=== PATIENT | male | born 1945 | race Caucasian/White ===

== ENCOUNTER → 2024-07-13 07:22 | Outpatient (REF) | payer MEDICARE, OTHER, SELFPAY ==
[2024-07-13 09:42] LABS: % Basophils 1.5 % (0-2); % Eosinophils 8.8 % (0-6); % Immature Granulocytes 0.4 % (0-0.5); % Lymphocytes 22.8 % (20.5-51.1); % Monocytes 10.1 % (1.7-9.3); % Neutrophils 56.4 % (42.2-75.2); Absolute Basophils 0.1 10^3/uL (0-0.2); Absolute Eosinophils 0.4 10^3/uL (0-0.7); Absolute Lymphocytes 1.1 10^3/uL (1.2-3.4); Absolute Monocytes 0.5 10^3/uL (0.1-0.6); Absolute Neutrophils 2.6 10^3/uL (1.4-6.5); Hematocrit 42.8 % (39.0-52.0); Hemoglobin 15.3 g/dL (13.0-18.0); Mean Corp Hgb Conc. 35.7 g/dL (33.0-37.0); Mean Corpuscular Hgb 34.4 pg (27.0-31.0); Mean Corpuscular Volume 96.2 fL (80.0-94.0); Mean Platelet Volume 10.3 fL (7.4-10.4); Nucleated Red Blood Cells % 0 % (-); Platelet Count 179 10^3/uL (130-400); Red Blood Cell Count 4.45 10^6/uL (4.70-6.10); Red Cell Dist. Width 11.8 % (11.5-14.5); White Blood Cell Count 4.6 10^3/uL (4.8-10.8)
[2024-07-13 10:01] LABS: ALT (SGPT) 33 U/L (0-50); AST (SGOT) 43 U/L (17-59); Albumin 4.7 g/dl (3.5-5.0); Alkaline Phosphatase 55 U/L (38-126); Blood Urea Nitrogen 18 mg/dl (9-20); Calcium 9.5 mg/dl (8.4-10.2); Carbon Dioxide 30 mmol/L (22-30); Chloride 101 mmol/L (98-107); Glucose 103 mg/dl (70-99); HDL Cholesterol 61 mg/dl; LDL Cholesterol, Calculated 82 mg/dl; Potassium 4.6 mmol/L (3.5-5.1); Sodium 138 mmol/L (135-145); Total Bilirubin 2.2 mg/dl (0.2-1.3); Total Cholesterol 186 mg/dl (50-199); Total Protein 7.8 g/dl (6.3-8.2); Triglyceride 218 mg/dl (10-149); Very Low Density Lipoprotein 43 mg/dl (0-30); eGFR > 60.00
[2024-07-13 10:29] LABS: PSA, Total - Screen 1.03 ng/ml (0.0-4.0); TSH Reflex To Free T4 1.95 uIU/ml (0.47-4.68)
[2024-07-13 10:45] LABS: Hepatitis C Antibody Negative (Negative)
[2024-07-13 11:25] LABS: Vitamin B12 415 pg/ml (239-931)
[2024-07-13 11:28] LABS: Glycohemoglobin (HgbA1c) 5.6 % (4.0-5.6)
== END ==
LOC: REG 07:22
PROVIDERS: ATTENDING PHYSICIAN Family Medicine
DX: R79.9 Abnormal finding of blood chemistry, unspecified (principal); Z01.89 Encounter for other specified special examinations; Z79.899 Other long term (current) drug therapy; Z12.5 Encounter for screening for malignant neoplasm of prostate
CPT/HCPCS: 36415; 80053; 80061; 82607; 83036; 84443; 85025; 86803; G0103

== ENCOUNTER → 2024-11-28 07:40 | Outpatient (REF) | payer MEDICARE, OTHER, SELFPAY ==
[2024-11-28 09:05] LABS: Glycohemoglobin (HgbA1c) 5.7 % (4.0-5.6)
[2024-11-28 09:08] LABS: ALT (SGPT) 27 U/L (0-50); AST (SGOT) 30 U/L (17-59); Albumin 4.6 g/dl (3.5-5.0); Alkaline Phosphatase 62 U/L (38-126); Blood Urea Nitrogen 15 mg/dl (9-20); Calcium 9.3 mg/dl (8.4-10.2); Carbon Dioxide 29 mmol/L (22-30); Chloride 107 mmol/L (98-107); Glucose 103 mg/dl (70-99); Potassium 4.7 mmol/L (3.5-5.1); Sodium 142 mmol/L (135-145); Total Bilirubin 3.1 mg/dl (0.2-1.3); Total Protein 7.3 g/dl (6.3-8.2); eGFR > 60.00
== END ==
LOC: REG 07:40
PROVIDERS: ATTENDING PHYSICIAN Family Medicine
DX: R73.9 Hyperglycemia, unspecified (principal); Z01.89 Encounter for other specified special examinations; Z79.899 Other long term (current) drug therapy
CPT/HCPCS: 36415; 80053; 83036

== ENCOUNTER → 2024-12-11 14:45 | Outpatient (REF) | payer MEDICARE, OTHER, SELFPAY | LOC: HWRAD 14:45 | PROVIDERS: ATTENDING PHYSICIAN Family Medicine; REFERRING PHYSICIAN Specialist | DX: N28.89 Other specified disorders of kidney and ureter (principal) | CPT/HCPCS: 76775 ==

== ENCOUNTER 2025-07-02 12:59 | Inpatient (IN) | payer MEDICARE, OTHER, SELFPAY ==
[2025-07-02] VITALS (15 sets, daily range): BP systolic 126–196; BP diastolic 75–99; BMI 30.3
--- NOTE | 2025-07-02 06:36 | ED.GENMED ---
History of Present Illness
<Alli Naqvi PA-C - Last Filed: 07/02/25 10:11>
General
Chief Complaint: Flank Pain
Time Seen by Provider: 07/02/25 06:04
History of Present Illness
History of Present Illness:
79-year-old male presents to the emergency department for evaluation of left flank pain beginning early hours this morning. Has a history of frequent kidney stones often requiring lithotripsy or ureteral stenting. Denies fevers or chills. No
diarrhea, hematuria, or dysuria.
Past History
<Alli Naqvi PA-C - Last Filed: 07/02/25 10:11>
Past History
ED Past Medical History: Hypercholesterolemia and Other (renal stones)
ED Past Surgical History: Cholecystectomy and Urological (Kidney stones)
Social History
Tobacco: Non-smoker
Alcohol: Occasional
Drug: None
Personal:
Living: with family
Employment: Retired
Family History
Family History: Hypertension
Review of Systems
<Alli Naqvi PA-C - Last Filed: 07/02/25 10:11>
Review of Systems
Allergies reviewed?: Yes
All Other Systems: ROS reviewed and negative except as documented in HPI and ROS
Phy Exam
<Alli Naqvi PA-C - Last Filed: 07/02/25 10:11>
Physical Exam
Physical Exam:
GEN: Well appearing, NAD, WDWN
HEENT: Oral mucosa moist, no scleral icterus
Cardiac: Regular rate
Lung: No respiratory distress, no tachypnea
Abdomen: Soft, grossly nontender, no CVA tenderness
MSK: No gross deformity or injuries
Skin: Good color, no pallor or jaundice, no rashes
Neuro: AO x3, moves all extremities freely
Psych: Calm, cooperative
Course
<Alli Naqvi PA-C - Last Filed: 07/02/25 10:11>
Orders/Labs/Results
Orders:
Orders
07/02/25 Breakfast
NPO
Allow oral meds: Yes
Allow clear liquids: Sips of Clears
07/02/25 06:27
CT Abd/pel Without Iv Or Oral Urgent
Comment:
Reason For Exam: L flank pain
Urinalysis Reflex To Culture Urgent
0.9% Sodium Chloride 1000 ml [Nss] 1,000 ml IV BOLUS
Ketorolac [Toradol] 15 mg IV NOW STA
07/02/25 06:44
Complete Blood Count/With Diff Urgent
Comprehensive Metabolic Panel Urgent
07/02/25 07:26
HYDROmorphone [Dilaudid] 0.5 mg IV NOW STA
Ondansetron Injectable [Zofran] 4 mg IV NOW STA
07/02/25 08:46
Admit Patient As Directed
Co-Sign Provider:
Level of Care: Inpatient admission
Assign to:: Medical/Surgical
Physician / Group:
Diagnosis: Nephrolithiasis
Reason for Hospitalization: Kidney stone
Expected length of stay greater than two midnights?: Yes
ELOS- Estimated Length of Stay in days: 3
I certify the patient meets the requirements for IP care: Yes
Code Status As Directed
Resuscitation Status: Do not resuscitate
Reached after discussion with pt or family/Healthcare POA: Yes
Bisacodyl [Dulcolax] 10 mg RECTAL [id number] PRN
Docusate W/Senna [Senokot-S] 1 tablet PO BIDPRN PRN
Polyethylene Glycol Powder [Miralax] 17 grams PO DAILYPRN PRN
PRN Pain Medication Management As Directed
May give lesser potent ordered pain med per pt: Yes
preference::
Protocol:: Medication orders for pain may be administered in a
manner that supports deferring to patient preference
when the pt is:
- Requesting an ordered lesser potent pain medication.
Least to most potent pain medications are defined
as: acetaminophen < NSAID < tramadol < opioids
(morphine, oxycodone, hydromorphone).
- Requesting a lesser dose of the same medication IF
ORDERED.
- Requesting a less intrusive route of administration
if both routes are prescribed by the provider (PO <
IV).
07/02/25 08:48
Activity As Directed
Activity Level: As Tolerated
DNR Bracelet Application ONCE
Vital Signs As Directed
Frequency: Per unit guidelines
07/02/25 08:51
Acetaminophen [Tylenol] 650 mg PO Q4HPRN PRN
07/02/25 08:53
Pneumatic Compression Sleeves As Directed
Type: Knee high
DX Deep Vein Thrombosis Video Routine
07/02/25 09:19
UROLOGY CONSULT Routine
Consulting Provider: Harrpeet Shah
Was physician already notified: Yes
07/02/25 09:38
Bisacodyl [Dulcolax] 10 mg RECTAL [id number] PRN
Docusate W/Senna [Senokot-S] 1 tablet PO BIDPRN PRN
Polyethylene Glycol Powder [Miralax] 17 grams PO DAILYPRN PRN
07/02/25 09:39
HYDROmorphone [Dilaudid] 0.25 mg IV Q4HPRN PRN
HYDROmorphone [Dilaudid] 0.5 mg IV Q4HPRN PRN
Activity As Directed
Activity Level: As Tolerated
Vital Signs As Directed
Frequency: Per unit guidelines
PRN Pain Medication Management As Directed
May give lesser potent ordered pain med per pt: Yes
preference::
Protocol:: Medication orders for pain may be administered in a
manner that supports deferring to patient preference
when the pt is:
- Requesting an ordered lesser potent pain medication.
Least to most potent pain medications are defined
as: acetaminophen < NSAID < tramadol < opioids
(morphine, oxycodone, hydromorphone).
- Requesting a lesser dose of the same medication IF
ORDERED.
- Requesting a less intrusive route of administration
if both routes are prescribed by the provider (PO <
IV).
07/02/25 09:45
0.9% Sodium Chloride 1000 ml [Nss] 1,000 ml IV 100 mls/hr
07/02/25 10:00
Tamsulosin [Flomax] 0.4 mg PO DAILY
07/03/25 06:00
Complete Blood Count/With Diff IN AM
Comprehensive Metabolic Panel IN AM
Abnormal Lab Results
07/02/25
06:44
RBC 4.53 L 10^6/uL
(4.70-6.10)
MCV 95.1 H fL
(80.0-94.0)
MCH 33.8 H pg
(27.0-31.0)
Absolute Lymphs (auto) 0.7 L 10^3/uL
(1.2-3.4)
Neutrophils % 81.1 H %
(42.2-75.2)
Lymphocytes % 11.2 L %
(20.5-51.1)
BUN 22 H mg/dl
(9-20)
Glucose 125 H mg/dl
(70-99)
Total Bilirubin 2.4 H mg/dl
(0.2-1.3)
07/02/25 06:44
07/02/25 06:44
Vital Signs
Initial and Last Documented VS:
Initial Vital Signs
Temp Pulse Resp BP Pulse Ox
97.7 F 60 20 174/94 98
07/02/25 05:15 07/02/25 05:15 07/02/25 05:15 07/02/25 05:15 07/02/25 05:15
Last Documented Vital Signs
Temp Pulse Resp BP Pulse Ox
97.7 F 64 16 160/86 98
07/02/25 05:15 07/02/25 07:37 07/02/25 07:37 07/02/25 07:37 07/02/25 07:37
<Sesar Ott, DO - Last Filed: 07/02/25 09:43>
Orders/Labs/Results
Orders:
Orders
07/02/25 Breakfast
NPO
Allow oral meds: Yes
Allow clear liquids: Sips of Clears
07/02/25 06:27
CT Abd/pel Without Iv Or Oral Urgent
Comment:
Reason For Exam: L flank pain
Urinalysis Reflex To Culture Urgent
0.9% Sodium Chloride 1000 ml [Nss] 1,000 ml IV BOLUS
Ketorolac [Toradol] 15 mg IV NOW STA
07/02/25 06:44
Complete Blood Count/With Diff Urgent
Comprehensive Metabolic Panel Urgent
07/02/25 07:26
HYDROmorphone [Dilaudid] 0.5 mg IV NOW STA
Ondansetron Injectable [Zofran] 4 mg IV NOW STA
07/02/25 08:46
Admit Patient As Directed
Co-Sign Provider:
Level of Care: Inpatient admission
Assign to:: Medical/Surgical
Physician / Group:
Diagnosis: Nephrolithiasis
Reason for Hospitalization: Kidney stone
Expected length of stay greater than two midnights?: Yes
ELOS- Estimated Length of Stay in days: 3
I certify the patient meets the requirements for IP care: Yes
Code Status As Directed
Resuscitation Status: Do not resuscitate
Reached after discussion with pt or family/Healthcare POA: Yes
Bisacodyl [Dulcolax] 10 mg RECTAL [id number] PRN
Docusate W/Senna [Senokot-S] 1 tablet PO BIDPRN PRN
Polyethylene Glycol Powder [Miralax] 17 grams PO DAILYPRN PRN
PRN Pain Medication Management As Directed
May give lesser potent ordered pain med per pt: Yes
preference::
Protocol:: Medication orders for pain may be administered in a
manner that supports deferring to patient preference
when the pt is:
- Requesting an ordered lesser potent pain medication.
Least to most potent pain medications are defined
as: acetaminophen < NSAID < tramadol < opioids
(morphine, oxycodone, hydromorphone).
- Requesting a lesser dose of the same medication IF
ORDERED.
- Requesting a less intrusive route of administration
if both routes are prescribed by the provider (PO <
IV).
07/02/25 08:48
Activity As Directed
Activity Level: As Tolerated
DNR Bracelet Application ONCE
Vital Signs As Directed
Frequency: Per unit guidelines
07/02/25 08:51
Acetaminophen [Tylenol] 650 mg PO Q4HPRN PRN
07/02/25 08:53
Pneumatic Compression Sleeves As Directed
Type: Knee high
DX Deep Vein Thrombosis Video Routine
07/02/25 09:19
UROLOGY CONSULT Routine
Consulting Provider: Harpreet Shah
Was physician already notified: Yes
07/02/25 09:38
Bisacodyl [Dulcolax] 10 mg RECTAL [id number] PRN
Docusate W/Senna [Senokot-S] 1 tablet PO BIDPRN PRN
Polyethylene Glycol Powder [Miralax] 17 grams PO DAILYPRN PRN
07/02/25 09:39
HYDROmorphone [Dilaudid] 0.25 mg IV Q4HPRN PRN
HYDROmorphone [Dilaudid] 0.5 mg IV Q4HPRN PRN
Activity As Directed
Activity Level: As Tolerated
Vital Signs As Directed
Frequency: Per unit guidelines
PRN Pain Medication Management As Directed
May give lesser potent ordered pain med per pt: Yes
preference::
Protocol:: Medication orders for pain may be administered in a
manner that supports deferring to patient preference
when the pt is:
- Requesting an ordered lesser potent pain medication.
Least to most potent pain medications are defined
as: acetaminophen < NSAID < tramadol < opioids
(morphine, oxycodone, hydromorphone).
- Requesting a lesser dose of the same medication IF
ORDERED.
- Requesting a less intrusive route of administration
if both routes are prescribed by the provider (PO <
IV).
07/02/25 09:45
0.9% Sodium Chloride 1000 ml [Nss] 1,000 ml IV 100 mls/hr
07/02/25 10:00
Tamsulosin [Flomax] 0.4 mg PO DAILY
07/03/25 06:00
Complete Blood Count/With Diff IN AM
Comprehensive Metabolic Panel IN AM
Abnormal Lab Results
07/02/25
06:44
RBC 4.53 L 10^6/uL
(4.70-6.10)
MCV 95.1 H fL
(80.0-94.0)
MCH 33.8 H pg
(27.0-31.0)
Absolute Lymphs (auto) 0.7 L 10^3/uL
(1.2-3.4)
Neutrophils % 81.1 H %
(42.2-75.2)
Lymphocytes % 11.2 L %
(20.5-51.1)
BUN 22 H mg/dl
(9-20)
Glucose 125 H mg/dl
(70-99)
Total Bilirubin 2.4 H mg/dl
(0.2-1.3)
07/02/25 06:44
07/02/25 06:44
Vital Signs
Initial and Last Documented VS:
Initial Vital Signs
Temp Pulse Resp BP Pulse Ox
97.7 F 60 20 174/94 98
07/02/25 05:15 07/02/25 05:15 07/02/25 05:15 07/02/25 05:15 07/02/25 05:15
Last Documented Vital Signs
Temp Pulse Resp BP Pulse Ox
97.7 F 64 16 160/86 98
07/02/25 05:15 07/02/25 07:37 07/02/25 07:37 07/02/25 07:37 07/02/25 07:37
<Alli Naqvi PA-C - Last Filed: 07/02/25 10:11>
MDM/Problems Addressed
MDM/Problems Addressed:
Given history requiring numerous ureteral stents will admit for urologic intervention, he is clinically stable at this time
<Alli Naqvi PA-C - Last Filed: 07/02/25 10:11>
*Pulse Oximetry
SaO2: 98
Patient hypoxic: no
*Critical Care Note
Total Time (30-74mins, 75-104mins- exclusive of procedures): Not Applicable
ED Attending Note
<Alli Naqvi PA-C - Last Filed: 07/02/25 10:11>
-
Portions of this chart may have been created with voice recognition software.� Occasional wrong word or��sound alike� substitutions may have occurred due to the inherent limitations of voice recognition software.
<Sesar Ott, DO - Last Filed: 07/02/25 09:43>
ED Attending Note
Patient seen and examined by attending physician: Yes
I performed the substantive portion of visit, reviewed & personally made and approve the management plan that is documented in note by myself or ACL.: Yes
ED Attending Note:
I evaluated patient at bedside. 7 mm left UPJ stone. Of note, total bili chronically elevated. Plan is for admission to the hospital for urologic management and procedure.
Discharge Plan
Departure
Patient Disposition: Admit
Date of Disposition: 07/02/25
Time of Disposition: 07:59
Admit to: Med/Surg
Presentation/result/management discussed w/ accepting MD/DO: Hospitalist
Discharge Problem:
Ureterolithiasis
Prescriptions:
No Action
trazodone 50 mg Tablet
50 mg PO HSPRN PRN (Reason: SLEEP)
atorvastatin 10 mg Tablet
10 mg PO HS
clonazepam 0.5 mg Tablet
0.25 mg PO BID
Referrals:
Debbie Torres MD [Family Provider, Family Practice]
Interventions
Interventions:
*General Assessment Last Done: 07/02/25 06:27
*Neglect/Abuse Screening Last Done: 07/02/25 05:15
*ED COVID-19 Vaccine History Last Done: 07/02/25 06:27
*ED Influenza Vaccine History Last Done: 07/02/25 06:27
[facility] Risk Assessment Tool Last Done: 07/02/25 06:27
*Risk Screen - Suicide (C-SSRS) Last Done: 07/02/25 06:27
PF-Lcsmyo-Jtddgusmol Assessment Last Done: 07/02/25 06:27
ED-Male Genitourinary Assessment Last Done: 07/02/25 06:27
Discharge Date and Time
Print Language: INDIAN
[2025-07-02] MEDS: NSS 1000 IV ×2 (06:40→14:39)
[2025-07-02] MEDS: TORADOL 15 MG IV (06:41)
[2025-07-02 07:00] LABS: Hematocrit 43.1 % (39.0-52.0); Hemoglobin 15.3 g/dL (13.0-18.0); Mean Corp Hgb Conc. 35.5 g/dL (33.0-37.0); Mean Corpuscular Volume 95.1 fL (80.0-94.0); Nucleated Red Blood Cells % 0 % (-); Platelet Count 153 10^3/uL (130-400); Red Cell Dist. Width 11.8 % (11.5-14.5)
[2025-07-02 07:11] LABS: ALT (SGPT) 24 U/L (0-50); AST (SGOT) 31 U/L (17-59); Albumin 4.6 g/dl (3.5-5.0); Alkaline Phosphatase 62 U/L (38-126); Blood Urea Nitrogen 22 mg/dl (9-20); Calcium 9.0 mg/dl (8.4-10.2); Carbon Dioxide 25 mmol/L (22-30); Chloride 105 mmol/L (98-107); Estimated Creatinine Clearance 69 ml/min; Glucose 125 mg/dl (70-99); Potassium 4.0 mmol/L (3.5-5.1); Sodium 136 mmol/L (135-145); Total Protein 7.9 g/dl (6.3-8.2); eGFR > 60.00
[2025-07-02] MEDS: ZOFRAN 4 MG IV (07:31)
[2025-07-02] MEDS: DILAUDID 0.5 MG IV ×3 (07:32→14:33)
--- NOTE | 2025-07-02 08:27 | HPS.HSE ---
Addendum entered and electronically signed by Chema Ledesma MD 07/02/25 09:59:
I saw and examined the patient.
The Resident's note was reviewed and I agree with the note.
Comment:
Patient is 79 years old male with past medical history as outlined came into the hospital left flank pain and found to have 7 mm calculus at the left ureteropelvic junction with mild to moderate left hydronephrosis. No fevers or chills. No dysuria
urgency or frequency. No chest pain or shortness of breath.
Physical exam:
General: Well Developed, Well Nourished and No Apparent Distress
HEENT: Normocephalic, Atraumatic and Moist Mucous Membranes
Respiratory: Clear to Auscultation; Negative Wheezes, Rales or Rhonchi
Cardiac: Regular Rhythm and S1/S2
GI: Soft, tender and Nondistended
Musculoskeletal: No Clubbing, No Cyanosis and No Edema
Neuro: Awake, Alert and Oriented
Psych: Calm
A/P:
Symptomatic obstructive ureteral stone--> IV fluids, Flomax, pain control, urology consult
Original Note:
Family Physician
-
Family Physician: Debbie Torres MD
Chief Complaint
-
Nephrolithiasis
History of Present Illness
This is a 79-year-old male patient who presents to [facility] for concerns of left-sided flank pain. He states that his pain started at around midnight last night after putting up his [place] decorations. He had initially assumed that this might be
constipation and had taken Dulcolax but had found no relief. Left-sided flank pain was nonradiating and did not take any pain medications. Denies any difficulty with urination or fever. He then started to have nausea and vomiting which were
uncontrollable which had brought him to the hospital. He recently traveled to [place] and returned on Tuesday night.
He states that he does have history of frequent kidney stones and multiple stents, with his most recent stent in 2020. He follows with Dr. Cerna urology outpatient whom he had last seen in February 2025.
Medical History
Past Medical History
Past Medical History: Reports GERD and Hypercholesterolemia
Additional Past Medical History:
Diverticulitis, basal cell carcinoma
Past Surgical History: Reports Bowel Resection (Partial colectomy 2015, right inguinal hernia repair 2019, tonsillectomy, cholecystectomy)
Social History
Tobacco: Non-smoker
Alcohol: Occasional
Drug: None
Personal:
Living: With Family
Family History
Family History: Cancer (Father prostate cancer, mother lung cancer)
Allergies / Home Medications
Allergies reflects when Allergies were last updated in [employer].
Home Medications with original date entered in [employer]
Allergy/Medication List:
Allergies
Allergy/AdvReac Type Severity Reaction Status Date / Time
metoclopramide Allergy Hyper Verified 07/02/25 05:17
morphine Allergy Vomiting Verified 07/02/25 05:17
oxycodone HCl (From Allergy trouble Verified 07/02/25 05:17
OxyContin) urinating
Home Medications
atorvastatin 10 mg tablet 10 mg PO HS High Cholesterol 02/09/23
clonazepam 0.5 mg tablet 0.25 mg PO BID Mental Health/Anxiety 02/09/23
trazodone 50 mg tablet 50 mg PO HSPRN PRN SLEEP 02/09/23
Review of Systems
-
History Source: Patient and Family
A 12 point ROS was completed and negative except as noted: Yes
: Reports Flank Pain (Left-sided)
Physical Exam
Vital Signs
Vital Signs
Temp Pulse Resp BP Pulse Ox
97.7 F 64 16 160/86 98
07/02/25 05:15 07/02/25 07:37 07/02/25 07:37 07/02/25 07:37 07/02/25 07:37
Physical Exam
General: Well Developed
HEENT: NormoCephalic
Respiratory: Clear
Cardiac: S1/S2 and Regular Rhythm
GI: Soft, Non Distended and Other (Left-sided flank pain)
Skin: Warm and Dry
Neuro: Awake, Alert and Oriented
Psych: Calm
Laboratory Results
-
07/02/25 06:44
07/02/25 06:44
Laboratory Results
Total Bilirubin 2.4 mg/dl (0.2-1.3) H 07/02/25 06:44
AST 31 U/L (17-59) 07/02/25 06:44
ALT 24 U/L (0-50) 07/02/25 06:44
Alkaline Phosphatase 62 U/L (38-126) 07/02/25 06:44
Impression/Plan
-
IMPRESSION:This is a 79-year-old male patient who presents to [facility] for concerns of left-sided flank pain.
PLAN:
#Nephrolithiasis
-Abd CT: 7 mm calculus at the left ureteropelvic junction with associated mild to moderate left hydronephrosis.
-NPO
-Continue pain management with tylenol for mild pain, IV Dilaudid for mod-severe pain, IV zofran prn
-Consult urology
-CBC and CMP in AM
-Initiate IVF
-Start flomax
#Mixed Hyperlipidemia
- continue statin
#Anxiety
- Takes clonazepam 0.25 twice daily but has not taken it for the past few days
Code: DNR
DVT: SCD
--- NOTE | 2025-07-02 09:55 | CONS.URO ---
Consultation
-
Date/Time Consultation Performed: 07/02/2025 1155
Performing Provider: Pablo
Reason for Consultation: Left Ureteral Stone
Medical History
History of Present Illness
Dr Cerna's office not from 12/2024: 'but t/c eswl for 7 mm rt upper pole stoe� pt to call after upvcoming low back txs'
Patient was advised to pre-emptively treat stone -- he declined.
ED note: '79-year-old male presents to the emergency department for evaluation of left flank pain beginning early hours this morning. Has a history of frequent kidney stones often requiring lithotripsy or ureteral stenting. Denies fevers or
chills. No diarrhea, hematuria, or dysuria.
Past Medical History
Past Medical History: Other (GERD, Hypercholesterolemia, Diverticulitis, basal cell carcinoma, nephrolithiasis)
Past Surgical History: Other (Partial colectomy 2014, right inguinal hernia repair 2019, tonsillectomy, cholecystectomy)
Social History
Personal:
Living: With Family
Allergies/Home Medications
Allergies
Allergy/AdvReac Type Severity Reaction Status Date / Time
metoclopramide Allergy Hyper Verified 07/02/25 05:17
morphine Allergy Vomiting Verified 07/02/25 05:17
oxycodone HCl (From Allergy trouble Verified 07/02/25 05:17
OxyContin) urinating
Home Medications
�Medication �Instructions �Recorded �Confirmed �Type
atorvastatin 10 mg tablet 10 mg PO HS High Cholesterol 02/09/23 07/02/25 History
clonazepam 0.5 mg tablet 0.25 mg PO BID Mental 02/09/23 07/02/25 History
Health/Anxiety
trazodone 50 mg tablet 50 mg PO HSPRN PRN SLEEP 02/09/23 07/02/25 History
Review of Systems
-
Constitutional: Reports No Symptoms
Respiratory: Reports No Symptoms
Cardiac: Reports No Symptoms
Physical Exam
Vital Signs
Vital Signs
Temp Pulse Resp BP Pulse Ox
97.7 F 64 16 160/86 98
07/02/25 05:15 07/02/25 07:37 07/02/25 07:37 07/02/25 07:37 07/02/25 07:37
Lab / Testing Results
Laboratory Results
07/02/25 06:44
07/02/25 06:44
Physical Exam
General: Well Developed, Well Nourished and No Apparent Distress
GI: Soft
Genito-urinary: No Costovertebral Tend
Assessment / Plan
-
Left Ureteral Stone: 7 mm, proximal, partially obstructing
d/w Dr Cerna --> will post for OR during PM today
surgical consent signed; present
Data Reviewed
-
CT Scan: Image personally visualized and interpreted
Lab Data: Labs Reviewed
Old Records: Reviewed
[2025-07-02 10:38] LABS: Urine Character Clear (Clear)
[2025-07-02 11:30] LABS: Urine Squamous Cell 0-2 /LPF (Few)
[2025-07-02 11:31] LABS: Urine Red Blood Cell >100 /HPF (0-2)
[2025-07-02] MEDS: FLOMAX 0.4 MG PO (14:38)
--- NOTE | 2025-07-02 16:46 | W.SUR.POST ---
Surgical Immediate Post Op
Note
Pre Op Diagnosis: prox left uretreal stone with obstruction
Post Op Diagnosis: same
Procedure Performed: left uretroscopy laser stone extraction with basket left jj stent
Primary Surgeonflrhysner
Secondary Surgeons:
Anesthesia: brittney lassiter
Estimated Blood Loss: 2cc
Fluids: nss
Drains/Shunts:6 fr 24 cm jj stent
Specimens/Cultures: stone
Doppler/Duplex/Angio (Y/N):
Complications: 0
Operative Findings: lg stone prox left ureter
--- NOTE | 2025-07-02 17:01 | W.DCSUMMARY ---
Discharge Summary
Discharge Data
Date of Admission: 07/02/25
Date of Discharge: 07/02/25
-
Pending Results: No
Hospital Course
Patient is 79 years old male with history of nephrolithiasis, hyperlipidemia, GERD, came into the hospital with left flank pain and found to have 7 mm obstructing ureteral stone. He was given IV fluids, pain control, Flomax. Urology consulted.
Urology took him to the OR and did left ureteroscopy laser stone extraction with basket left JJ stent. Patient did well postop. Urology cleared him for discharge. He will be discharged in relatively stable condition today.
Discharge Plan
-
Patient Disposition: Home (Routine Discharge)
Discharge Diagnosis/Procedures: left uretral stone with obstruction , intractable pain
Condition: Good
Diet: Regular
Activity: As tolerated
Blood Work: Please PCP to order CBC, BMP within 1 week
Referrals:
Florin Cerna MD [Active, Urology]
Referral Note: you have a stent expect blood inurine frequecy urgency until stent comes out Call Dr Cerna [phone] schedule with mS Dixon STENT REMOVAL CALL DEBBIE TO SCHEDUE BEFORE HOLIDAYS
Debbie Torres MD [Family Provider, Family Practice] - in less than 1 week
Prescriptions:
New
tamsulosin 0.4 mg Capsule
0.4 mg PO DAILY Qty: 30 0RF
acetaminophen [Tylenol] 325 mg tablet
650 mg PO Q4H PRN (Reason: fever or pain) Qty: 20 0RF
Continued
trazodone 50 mg Tablet
50 mg PO HSPRN PRN (Reason: SLEEP)
atorvastatin 10 mg Tablet
10 mg PO HS
clonazepam 0.5 mg Tablet
0.25 mg PO BID
Discharge Orders:
Discharge Patient (As Directed); Ordered 07/02/25
Ordered By: Chema Ledesma
Discharge Date and Time
Discharge Date/Time: 07/02/25 19:29
Print Language: CYPRIOT
[2025-07-02] MEDS: APRESOLINE 5 MG IV ×2 (17:51→18:02)
[2025-07-07 17:29] LABS: Stone Analysis Mass 12 mg
== END 2025-07-02 19:29 | disposition home or self-care (01) | DRG 661 ==
LOC: ED 12:59
PROVIDERS: Physician Assistant; Specialist; ADMITTING PHYSICIAN Hospitalist; CONSULT PHYSICIAN Specialist; EMERGENCY PHYSICIAN Emergency Medicine; FAMILY PHYSICIAN Family Medicine
PROC: 0TC78ZZ Extirpation of Matter from Left Ureter, Via Natural or Artificial Opening Endoscopic (ICD-10-PCS; 2025-07-02)
PROC: 0T778DZ Dilation of Left Ureter with Intraluminal Device, Via Natural or Artificial Opening Endoscopic (ICD-10-PCS; 2025-07-02)
DX: N13.2 Hydronephrosis with renal and ureteral calculous obstruction (principal); Z66 Do not resuscitate; E78.2 Mixed hyperlipidemia; F41.9 Anxiety disorder, unspecified
CPT/HCPCS: 74018; 74176; 76000; 80053; 81003; 81015; 82365; 85025; 87086; 96361; 96374; 96375; 96376; 99284; C1894; C2617

== ENCOUNTER → 2025-07-03 11:23 | Outpatient (REF) | payer MEDICARE, OTHER, SELFPAY | LOC: CLAB 11:23 | PROVIDERS: ATTENDING PHYSICIAN Specialist | DX: N39.0 Urinary tract infection, site not specified (principal) | CPT/HCPCS: 87086 ==

== ENCOUNTER → 2025-07-05 11:01 | Outpatient (REF) | payer MEDICARE, OTHER, SELFPAY | LOC: CLAB 11:01 | PROVIDERS: ATTENDING PHYSICIAN Specialist | DX: N39.0 Urinary tract infection, site not specified (principal) | CPT/HCPCS: 87086 ==